=== PATIENT | male | born 1960 | race African-American/Black ===

== ENCOUNTER 2018-08-25 19:08 | Emergency (ER) | payer OTHER ==
[2018-08-25] MEDS ORDERED: HYDROCODONE/APAP 5/325 MG TAB ONE (20:12)
[2018-08-25] MEDS ORDERED: LIDOCAINE 1% MPF 5 ML VIAL ONE (20:12)
[2018-08-25] MEDS ORDERED: CLINDAMYCIN HCL 150 MG CAP ONE (20:13)
--- NOTE | 2018-08-25 20:32 | EDPHYS ---
Physician Documentation [facility] Name: Tony Fish Age: 58 yrs Sex: Male : 1960 Arrival Date: 08/25/2018 Time: 19:10 Bed 30 Private MD: ED Physician Madan Jiménez HPI: 08/25 20:52 This 58 yrs old Black Male presents to ER via Ambulatory with complaints of Eye Pain, snw Eye Problem. 20:52 The patient is experiencing pain, to the left eye, caused by an unknown mechanism. snw Onset: The symptoms/episode began/occurred suddenly, 3 day(s) ago, and became worse. Duration: the symptoms are continuous. Aggravated by pressure. Severity of symptoms: At their worst the symptoms were moderate. The patient has not experienced similar symptoms in the past. The patient has not recently seen a physician. Historical: - Allergies: 19:16 No Known Allergies; aj1 - Home Meds: 19:16 "different types of heart medicine" [Active]; aj1 - PMHx: 19:16 Myocardial infarction; Arthritis; carpal tunnel syndrome; "irregular heart beat"; aj1 - Immunization history:: Flu vaccine is not up to date. - Social history:: Smoking status: Patient/guardian denies using tobacco. - Ebola Screening: : Patient denies travel to an Ebola-affected area in the 21 days before illness onset. ROS: 20:51 Constitutional: Negative for fever, chills, and weight loss, ENT: Negative for injury, snw pain, and discharge, Neck: Negative for injury, pain, and swelling, Cardiovascular: Negative for chest pain, palpitations, and edema, Respiratory: Negative for shortness of breath, cough, wheezing, and pleuritic chest pain, Abdomen/GI: Negative for abdominal pain, nausea, vomiting, diarrhea, and constipation, Back: Negative for injury and pain, : Negative for injury, bleeding, discharge, and swelling, MS/Extremity: Negative for injury and deformity, Skin: Negative for injury, rash, and discoloration, Neuro: Negative for headache, weakness, numbness, tingling, and seizure. 20:51 Eyes: Positive for pain, swelling, of the left upper eyelid. Exam: 20:49 Constitutional: This is a well developed, well nourished patient who is awake, alert, snw and in no acute distress. Head/Face: Normocephalic, atraumatic. ENT: Nares patent. No nasal discharge, no septal abnormalities noted. Tympanic membranes are normal and external auditory canals are clear. Oropharynx with no redness, swelling, or masses, exudates, or evidence of obstruction, uvula midline. Mucous membranes moist. Neck: Trachea midline, no thyromegaly or masses palpated, and no cervical lymphadenopathy. Supple, full range of motion without nuchal rigidity, or vertebral point tenderness. No Meningismus. Chest/axilla: Normal chest wall appearance and motion. Nontender with no deformity. No lesions are appreciated. Cardiovascular: Regular rate and rhythm with a normal S1 and S2. No gallops, murmurs, or rubs. Normal PMI, no JVD. No pulse deficits. Respiratory: Lungs have equal breath sounds bilaterally, clear to auscultation and percussion. No rales, rhonchi or wheezes noted. No increased work of breathing, no retractions or nasal flaring. Abdomen/GI: Soft, non-tender, with normal bowel sounds. No distension or tympany. No guarding or rebound. No evidence of tenderness throughout. Back: No spinal tenderness. No costovertebral tenderness. Full range of motion. Skin: Warm, dry with normal turgor. Normal color with no rashes, no lesions, and no evidence of cellulitis. MS/ Extremity: Pulses equal, no cyanosis. Neurovascular intact. Full, normal range of motion. Neuro: Awake and alert, GCS 15, oriented to person, place, time, and situation. Cranial nerves II-XII grossly intact. Motor strength 5/5 in all extremities. Sensory grossly intact. Cerebellar exam normal. Normal gait. Psych: Awake, alert, with orientation to person, place and time. Behavior, mood, and affect are within normal limits. 20:49 Eyes: Periorbital structures: appear normal, Pupils: dilated, Extraocular movements: no acute changes, Lids and lashes: abscess to left superior lateral eyelid. Vital Signs: 19:16 BP 130 / 85; Pulse 85; Resp 18; Temp 98.4; Pulse Ox 97% on R/A; Weight 77.11 kg (R); aj1 Height 6 ft. 2 in. (187.96 cm); Pain 5/10; 20:39 BP 134 / 82; Pulse 76; Resp 17 S; Pulse Ox 98% on R/A; rv 19:16 Body Mass Index 21.83 (77.11 kg, 187.96 cm) aj1 Visual Acuity: 19:28 Left Eye Pupil size 2 mm, Normal, React To Light, Reactive To Accomodation; Right Eye rv Pupil size 2 mm, Normal, React To Light, Reactive To Accomodation; Without Lenses; Procedures: 20:31 I \\T\\ D: Incision and drainage was performed for an abscess of the left left lateral snw superior eyelid Prepped with hibiclens. Anesthetized with 3 ml's 1% Lidocaine. Incised with #11 blade. Drained moderate amount large amount purulent fluid. serosanguinous fluid. the patient tolerated the procedure well. MDM: 19:35 Patient medically screened. june 20:48 Data reviewed: vital signs, nurses notes. Data interpreted: Pulse oximetry: on room air snw is 98 %. Interpretation: normal. Counseling: I had a detailed discussion with the patient and/or guardian regarding: the historical points, exam findings, and any diagnostic results supporting the discharge/admit diagnosis, the presence of at least one elevated blood pressure reading (>120/80) during this emergency department visit, the need for outpatient follow up, for definitive care, to return to the emergency department if symptoms worsen or persist or if there are any questions or concerns that arise at home. Special discussion: I have referred the patient to see his PCP for further evaluation of high blood pressure. Based on the history and exam findings, there is no indication for further emergent testing or inpatient evaluation. I discussed with the patient/guardian the need to see the primary care provider for further evaluation of the symptoms. Administered Medications: 20:10 Drug: Clindamycin 300 mg Route: PO; rv 20:41 Follow up: Response: No adverse reaction rv 20:10 Drug: [place] 5 mg-325 mg 1 tabs Route: PO; rv 20:41 Follow up: Response: No adverse reaction rv 20:15 Drug: Lidocaine (1 %) 5 mg {Note: used by Mellisa TRIMBLE.} Route: Infiltration; rv 20:42 Follow up: Response: No adverse reaction rv Disposition: 08/26 07:09 Co-signature as Attending Physician, Madan Jiménez MD I agree with the assessment and june plan of care. Disposition: 08/25/18 20:32 Discharged to Home. Impression: Cutaneous abscess of face - left superior eyelid. - Condition is Stable. - Discharge Instructions: Skin Abscess, Incision and Drainage, Incision and Drainage, Care After, Heat Therapy. - Prescriptions for Clindamycin HCl 300 mg Oral Capsule - take 1 capsule by ORAL route every 6 hours for 10 days; 40 capsule. - Medication Reconciliation Form, Thank You Letter, Antibiotic Education, Prescription Opioid Use form. - Follow up: Private Physician; When: 2 - 3 days; Reason: Recheck today's complaints, Continuance of care, Re-evaluation by your physician. Follow up: Emergency Department; When: As needed; Reason: Worsening of condition. Signatures: Hannah Sena RN RN ajMadan Quintero MD MD cha Therrien, Shelly, FOOD ASSEMBLER KITCHEN-C FOOD ASSEMBLER KITCHEN-Csnw Salty Robles RN RN rv Corrections: (The following items were deleted from the chart) 08/25 20:40 20:32 08/25/2018 20:32 Discharged to Home. Impression: Cutaneous abscess of face - left rv superior eyelid. Condition is Stable. Forms are Medication Reconciliation Form, Thank You Letter, Antibiotic Education, Prescription Opioid Use. Follow up: Private Physician; When: 2 - 3 days; Reason: Recheck today's complaints, Continuance of care, Re-evaluation by your physician. Follow up: Emergency Department; When: As needed; Reason: Worsening of condition. snw
--- NOTE | 2018-08-25 20:32 | ER ---
Nurse's Notes [facility] Emergency Department Name: Tony Fish Age: 58 yrs Sex: Male : 1960 Arrival Date: 08/25/2018 Time: 19:10 Bed 30 Private MD: Diagnosis: Cutaneous abscess of face-left superior eyelid Presentation: 08/25 19:13 Presenting complaint: Patient states: "A little boil came up on my eye and within 6-7 aj1 days its gotten swollen and irritated." Denies fever, Reports blurred vision in left eye. Abscess noted above left eye. Transition of care: patient was not received from another setting of care. Mechanism of Injury: No Mechanism of Injury. The patient denies any loss of vision. Onset of symptoms was August 18, 2018. Risk Assessment: Do you want to hurt yourself or someone else? Patient reports no desire to harm self or others. Initial Sepsis Screen: Does the patient meet any 2 criteria? No. Patient's initial sepsis screen is negative. Does the patient have a suspected source of infection? Yes: Skin breakdown/wound. Care prior to arrival: None. 19:13 Method Of Arrival: Ambulatory aj1 19:13 Acuity: RAMIREZ 3 aj1 Triage Assessment: 19:16 General: Appears in no apparent distress. comfortable, Behavior is calm, cooperative, aj1 appropriate for age. Pain: Complains of pain in left supraorbital ridge Pain currently is 5 out of 10 on a pain scale. EENT: Reports blurred vision eye pain. Neuro: Level of Consciousness is awake, alert, obeys commands. Cardiovascular: Patient's skin is warm and dry. Respiratory: Airway is patent Respiratory effort is even, unlabored, Respiratory pattern is regular, symmetrical. Historical: - Allergies: 19:16 No Known Allergies; aj1 - Home Meds: 19:16 "different types of heart medicine" [Active]; aj1 - PMHx: 19:16 Myocardial infarction; Arthritis; carpal tunnel syndrome; "irregular heart beat"; aj1 - Immunization history:: Flu vaccine is not up to date. - Social history:: Smoking status: Patient/guardian denies using tobacco. - Ebola Screening: : Patient denies travel to an Ebola-affected area in the 21 days before illness onset. Screenin:27 Abuse screen: Denies threats or abuse. Denies injuries from another. Nutritional rv screening: No deficits noted. Tuberculosis screening: No symptoms or risk factors identified. Fall Risk None identified. Assessment: 19:25 General: Appears in no apparent distress. comfortable, Behavior is calm, cooperative. rv Pain: Complains of pain in left eye. Neuro: Level of Consciousness is awake, alert, obeys commands, Oriented to person, place, time, situation. Cardiovascular: Capillary refill < 3 seconds. Respiratory: Airway is patent. GI: No signs and/or symptoms were reported involving the gastrointestinal system. : No signs and/or symptoms were reported regarding the genitourinary system. EENT: Eyes are tearing on left eye Sclera/Cornea are clear in left eye Lid(s) knot. Derm: Skin is intact. Musculoskeletal: No signs and/or symptoms reported regarding the musculoskeletal system. Vital Signs: 19:16 BP 130 / 85; Pulse 85; Resp 18; Temp 98.4; Pulse Ox 97% on R/A; Weight 77.11 kg (R); aj1 Height 6 ft. 2 in. (187.96 cm); Pain 5/10; 20:39 BP 134 / 82; Pulse 76; Resp 17 S; Pulse Ox 98% on R/A; rv 19:16 Body Mass Index 21.83 (77.11 kg, 187.96 cm) aj1 Visual Acuity: 19:28 Left Eye Pupil size 2 mm, Normal, React To Light, Reactive To Accomodation; Right Eye rv Pupil size 2 mm, Normal, React To Light, Reactive To Accomodation; Without Lenses; ED Course: 19:10 Patient arrived in ED. al2 19:15 Triage completed. aj1 19:16 Arm band placed on Patient placed in an exam room. aj1 19:28 Patient has correct armband on for positive identification. Bed in low position. Call rv light in reach. Side rails up X 1. Adult w/ patient. Pulse ox on. NIBP on. 19:31 Celena Pak FNP-C is [facility]. snw 19:31 Madan Jiménez MD is Attending Physician. snw 20:38 No provider procedures requiring assistance completed. Patient did not have IV access rv during this emergency room visit. Administered Medications: 20:10 Drug: Clindamycin 300 mg Route: PO; rv 20:41 Follow up: Response: No adverse reaction rv 20:10 Drug: [place] 5 mg-325 mg 1 tabs Route: PO; rv 20:41 Follow up: Response: No adverse reaction rv 20:15 Drug: Lidocaine (1 %) 5 mg {Note: used by Mellisa TRIMBLE.} Route: Infiltration; rv 20:42 Follow up: Response: No adverse reaction rv Outcome: 20:32 Discharge ordered by . cortney 20:39 Discharged to home ambulatory. rv 20:39 Condition: good 20:39 Discharge instructions given to patient, Instructed on discharge instructions, follow up and referral plans. medication usage, Demonstrated understanding of instructions, follow-up care, medications, Prescriptions given X 1. 20:40 Patient left the ED. rv Signatures: Hannah Sena RN RN aj1 Celena Pak, VIKKIC HAIRS[employer]ING TRUING INSPECTOR-Cynthia Hooper Ronaldo, RN RN rv Corrections: (The following items were deleted from the chart) 20:39 20:39 Discharge instructions given to patient, Instructed on discharge instructions, rv follow up and referral plans. medication usage, Demonstrated understanding of instructions, follow-up care, medications, rv
== END 2018-08-25 20:40 | disposition home or self-care (01) ==
LOC: ER 19:08
PROC: 089 Eye, Drainage (ICD-10-PCS; principal; 2018-08-25)
DX: H00.034 Abscess of left upper eyelid (principal); I25.2 Old myocardial infarction; Z79.899 Other long term (current) drug therapy
CPT/HCPCS: 99283